=== PATIENT | female | born 1950 | race Caucasian/White ===

== ENCOUNTER 2017-05-13 10:39 | Emergency (ER) | payer MEDICARE, BC ==
[2017-05-13 11:37] VITALS: BP 173/123
--- NOTE | 2017-05-13 12:55 | RAD ---
INDICATION: Multiple weeks cough with recent worsening. COMPARISON: No relevant prior exams available on the [facility] PACS for comparison. TECHNIQUE: Dual energy PA and routine lateral views of the chest were obtained. REPORT: Small calcified granuloma at the RIGHT upper lung zone . Mild airspace consolidation at the LEFT lung base with partial obscuration of the hemidiaphragm most suspicious for pneumonia involving the lingula. Negative for pleural effusion or pneumothorax. Negative for cardiomegaly. Unremarkable central pulmonary vasculature. Mildly tortuous descending thoracic aorta. IMPRESSION: LEFT basilar pulmonary infiltrate most consistent with pneumonia. Radiographic follow-up after therapy suggested to assess for resolution.
--- NOTE | 2017-05-13 14:13 | UC ---
Antoinette Alaniz Gabriel, scribed for Misha Vivar MD on 05/13/17 at 1214 . Respiratory Complaint HPI - HPI Summary HPI Summary: This patient is a 66 year old F presenting to [facility] with a chief complaint of cough since 6 weeks ago. Patient reports clear nasal discharge, post nasal drip (past two days), and occasionally some sputum brought up with cough. Patient denies ear pain, sore throat, fever, chills, SOB, and LE edema. She describes the cough as occasional occurring around once an hour. She doesnt believe it is due to a cold, 2 days ago she started going into coughing fits where she cant catch her breath. Pt doesnt believe her cough is contagious but would like to get it checked. Pt denies any history or GERD, smoking, COPD, blood clots, CHF, and tuberculosis. - History of Current Complaint Chief Complaint: UCRespiratory Stated Complaint: COUGH Time Seen by Provider: 05/13/17 12:08 Hx Obtained From: Patient Onset/Duration: Lasting Weeks - 6, Still Present Severity Initially: Mild Severity Currently: Moderate Pain Intensity: 0 Pain Scale Used: 0-10 Numeric Character: Cough: Productive Associated Signs And Symptoms: Positive: Negative - ear pain, sore throat, fever , chills, SOB, and LE edema - Allergies/Home Medications Allergies/Adverse Reactions: Allergies Allergy/AdvReac Type Severity Reaction Status Date / Time No Known Allergies Allergy Verified 05/13/17 11:37 Home Medications: Home Medications Multiple Vitamin [Multivitamins] 1 tab PO DAILY 05/13/17 [History Confirmed 09/24] PMH/Surg Hx/FS Hx/Imm Hx Previously Healthy: No Cardiovascular History: Hypertension - Surgical History Surgical History: Yes Surgery Procedure, Year, and Place: Tubal - Family History Known Family History: Positive: Hypertension, Other - hypothyroidism Negative: Diabetes - Social History Alcohol Use: Occasionally Substance Use Type: None Smoking Status (MU): Never Smoked Tobacco Review of Systems Constitutional: Negative - fever and chills Eyes: Negative - ear pain ENT: Negative - sore throat, Nasal Discharge, Other - post nasal drip Respiratory: Negative - SOB, Cough - with sputum Musculoskeletal: Negative - LE edema Is Patient Immunocompromised?: No All Other Systems Reviewed And Are Negative: Yes Physical Exam Triage Information Reviewed: Yes Appearance: Well-Appearing, No Pain Distress Vital Signs: Initial Vital Signs Temp 98.4 F 05/13/17 11:33 Pulse 84 05/13/17 11:33 Resp 18 05/13/17 11:33 BP 173/123 05/13/17 11:33 Pulse Ox 99 05/13/17 11:33 Eye Exam: Normal, Other - PERRL, EOMI ENT Exam: Normal Neck exam: Normal Neck: Positive: Supple, Nontender Respiratory Exam: Other Respiratory: Positive: Crackles - in right base Cardiovascular Exam: Normal Cardiovascular: Positive: RRR, No Murmur Abdominal Exam: Normal Abdomen Description: Positive: Nontender, Soft Bowel Sounds: Positive: Present Musculoskeletal Exam: Normal Musculoskeletal: Positive: Strength Intact, ROM Intact Neurological Exam: Normal, Other - sensory/motor intact, A&O x3 Psychological Exam: Normal, Other - affect/mood appropriate Skin Exam: Normal, Other - color reflects adequate perfusion, dry UC Diagnostic Evaluation - Laboratory O2 Sat by Pulse Oximetry: 99 - Radiology Radiology Interpretation Completed By: Radiologist - LEFT basilar pulmonary infiltrate most consistent with pneumonia. Radiographic follow-up after therapy suggested to assess for resolution Respiratory Course/Dx - Course Course Of Treatment: BP noted and advised to follow up with PCP. CXR SHOWS PNEUMONIA. RX AZITHROMYCIN. F/U PMD THIS WEEK. GO TO ED IF WORSE. THIS WAS ALL DISCUSSED WITH THE PATIENT - Differential Dx/Diagnosis Provider Diagnoses: PNEUMONIA. uncontrolled hypertension Discharge - Discharge Plan Condition: Stable Disposition: HOME Prescriptions: Azithromyxin SHADI (NF) [Z-Shadi (Zithromax) 250 mg tabs #6] 2 tab PO .TODAY, THEN 1 DAILY #6 tab Patient Education Materials: Community Acquired Pneumonia (ED) Referrals: Eryn Doshi MD [Primary Care Provider] - Additional Instructions: Your blood pressure was elevated during todays visit, please follow up with your primary care provider for further evaluation. FOLLOW UP WITH YOUR DOCTOR WITHIN ONE WEEK. GO TO THE EMERGENCY DEPARTMENT FOR ANY WORSENING OF YOUR CONDITION OR QUESTIONS OR CONCERNS. The documentation as recorded by the Antoinette carrera Gabriel accurately reflects the service I personally performed and the decisions made by me, Misha Vivar MD.
== END 2017-05-13 13:19 | disposition home or self-care (01) ==
LOC: UCEAST 10:39
DX: J18.9 Pneumonia, unspecified organism (principal); I10 Essential (primary) hypertension
CPT/HCPCS: 71020; 99212; G0463